=== PATIENT | female | born 1990 | race African-American/Black ===

== ENCOUNTER 2024-08-12 05:08 | Inpatient (IN) | payer SELFPAY ==
[~2024-08-12] VITALS: Ht 160 cm; Wt 95.0 kg
--- NOTE | 2024-08-12 05:27 | PRN ---
Misceleneous Note Note Note RAPID MEDICAL ASSESSMENT NOTE: 34-year-old female who presents with abdominal pain ongoing for 2 days. Worsened overnight. No associated nausea, vomiting, diarrhea. She denies any significant past medical history. Physical exam: General: Awake, alert and oriented. No acute distress. Skin: Skin in warm, dry and intact without rashes or lesions. HEENT: The head is normocephalic and atraumatic. Conjunctivae are clear without exudates or hemorrhage. Sclera is non-icteric. Cardiac: Regular rate Respiratory: No signs of respiratory distress. No Stridor. Abdomen: Right lower quadrant tenderness. Abdomen Soft, not rigid, no peritoneal signs Neurological: The patient is awake, alert and oriented to person, place, and time with normal speech. Speech is clear. There is no facial asymmetry. Able to ambulate without difficulty. Psychiatric: Appropriate mood and affect. Good judgement and insight. Plan: Labs, urine , urinalysis and imaging ordered Sign out to oncoming provider pending full evaluation and re-assessment. LANA PRAKASH MD Aug 12, 2024 05:27
[2024-08-12] MEDS: KETOROLAC TROMETH 30 MG/ML 1ML VIAL IV ONE (05:51)
--- NOTE | 2024-08-12 06:26 | ED.PDOC ---
History of Present Illness HPI Comments 34-year-old female with no PMHx presents with a chief complaint of abdominal pain. Patient states that her pain is localized to her RLQ, nonradiating, describes as sharp/stabbing pain, and rates her pain a 9/10. Patient denies any nausea, vomiting, or diarrhea with her abdomen pain. Patient denies any injuries or trauma prior to onset of symptoms. Patient also denies possibility of being . 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 Family History Family History: Reviewed,noncontributory to illness Social History Smoker: Non-Smoker Alcohol: Denies ETOH Use Drugs: Denies Drug Use Lives In: Home Constitutional: denies: chills, diaphoresis, fatigue, fever, malaise, sweats, weakness, others EENTM: denies: blurred vision, double vision, ear bleeding, ear discharge, ear drainage, ear pain, ear ringing, eye pain, eye redness, hearing loss, mouth p ain, mouth swelling, nasal discharge, nose bleeding, nose congestion, nose pain, photophobia, tearing, throat pain, throat swelling, voice changes, others Respiratory: denies: cough, hemoptysis, orthopnea, SOB at rest, shortness of br eath, SOB with excertion, stridor, wheezing, others Cardiovascular: denies: chest pain, dizzy spells, diaphoresis, Dyspnea on exertion, edema, irregular heart beat, left arm pain, lightheadedness, palpitations, PND, syncope, others Gastrointestinal: reports: abdominal pain; denies: abdomen distended, blood streaked bowels, constipated, diarrhea, dysphagia, difficulty swallowing, hematemesis, melena, nausea, poor appetite, poor fluid intake, rectal bleeding, rectal pain, vomiting, others Genitourinary: denies: abnormal vagina bleeding, burning, dyspareunia, dysuria, flank pain, frequency, hematuria, incontinence, pain, , vagina discharge, urgency, others Neurological: denies: dizziness, fainting, headache, left sided numbness, left sided weakness, numbness, paresthesia, pre-existing deficit, right sided numbness, right sided weakness, seizure, speech problems, tingling, tremors, weakness, others Musculoskeletal: denies: back pain, gout, joint pain, joint swelling, muscle pain, muscle stiffness, neck pain, others Integumetry: denies: bruises, change in color, change in hair/nails, dryness, laceration, lesions, lumps, rash, wounds, others Allergic/Immunocompromised: denies: Difficulty Healing, Frequent Infections, Hives, Itching, others Hematologic/Lymphatic: denies: anemia, blood clots, easy bleeding, easy bruis ing, swollen glands, others Endocrine: denies: excessive hunger, excessive sweating, excessive thirst, exc essive urination, flushing, intolerance to cold, intolerance to heat, unexplained weight gain, unexplained weight loss, others Psychiatric: denies: anxiety, bipolar disorder, depression, hopeless, panic disorder, schizophrenia, sleepless, suicidal, others All Other Systems: Reviewed and Negative Physical Exam General Appearance: Mild Distress, Normal HEENT: Normal ENT Inspection, Pharynx Normal, TMs Normal Neck: Full Range of Motion, Non-Tender, Normal, Normal Inspection Respiratory: Chest Non-Tender, Lungs Clear, No Accessory Muscle Use, No Respiratory Distress, Normal Breath Sounds Cardiovascular: No Edema, No JVD, No Murmur, No Gallop, Normal Peripheral Pulses, Regular Rate/Rhythm Breast Exam: Deferred Gastrointestinal: No Organomegaly, No Pulsatile Mass, Normal Bowel Sounds, RLQ, Soft, Tenderness Genitalia: Deferred Pelvic: Deferred Rectal: Deferred Extremities: No calf tenderness, Normal capillary refill, Normal inspection, Normal range of motion, Non-tender, No pedal edema Musculoskeletal : Apperance: Normal Neurologic: Alert, position clerk II-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 Was a procedure done?: No Differential Dx Considerations may include: Acute appendicitis, pyelonephritis, ovarian cyst, acute cystitis, diverticulitis, X-Ray, Labs, Meds, VS Vital Signs Date Time Temp Pulse Resp B/P (MAP) Pulse Ox O2 Delivery O2 Flow Rate FiO2 08/12/24 07:41 89 16 96 Room Air* 0 21 08/12/24 07:40 89 16 124/46 08/12/24 07:39 98.4 89 16 124/46 (72) 96 98.4 08/12/24 06:44 98.8 91 17 122/63 (82) 98 98.8 08/12/24 06:44 91 17 122/63 08/12/24 06:44 91 17 98 Room Air 08/12/24 05:11 98.9 110 22 133/82 (99) 98 Lab Test 08/12/24 06:50 08/12/24 06:43 Range/Units White Blood Count 17.5 H 4.4-10.8 10^3/uL Red Blood Count 4.66 4.0-5.20 10^6/uL Hemoglobin 13.1 12.2-16.2 g/dL Hematocrit 39.7 36.0-46.0 % Mean Corpuscular Volume 85.2 80.0-100.0 fL Mean Corpuscular Hemoglobin 28.0 28.0-32.0 pg Mean Corpuscular Hemoglobin Concent 32.9 32.0-36.0 g/dL Red Cell Distribution Width 15.9 H 11.8-14.3 % Platelet Count 325 140-450 10^3/uL Mean Platelet Volume 7.1 6.9-10.8 fL Neutrophils (%) (Auto) 84.0 H 37.0-80.0 % Lymphocytes (%) (Auto) 7.7 L 10.0-50.0 % Monocytes (%) (Auto) 7.5 0.0-12.0 % Eosinophils (%) (Auto) 0.3 0.0-7.0 % Basophils (%) (Auto) 0.5 0.0-2.0 % Neutrophils # (Auto) 14.7 H 1.6-8.6 10 ^3/uL Lymphocytes # (Auto) 1.3 0.4-5.4 10 ^3/uL Monocytes # (Auto) 1.3 0-1.3 10 ^3/uL Eosinophils # (Auto) 0.1 0-0.8 10 ^3/uL Basophils # (Auto) 0.1 0-0.2 10 ^3/uL Nucleated Red Blood Cells 0.1 % Sodium Level 134 L 136-145 mmol/L Potassium Level 3.6 3.5-5.1 mmol/L Chloride Level 104 98-107 mmol/L Carbon Dioxide Level 22 20-31 mmol/L Anion Gap 8 5-15 Blood Urea Nitrogen < 5 L 9-23 mg/dL Creatinine 0.88 0.550-1.02 mg/dL Glomerular Filtration Rate Calc 89 >90 mL/min BUN/Creatinine Ratio 5.7 L 10.0-20.0 Serum Glucose 105 74-106 mg/dL Calcium Level 9.3 8.7-10.4 mg/dL Total Bilirubin 0.6 0.2-1.0 mg/dL Aspartate Amino Transferase (AST) 22 13-40 U/L Alanine Aminotransferase (ALT) 26 7-40 U/L Alkaline Phosphatase 110 46-116 U/L Total Protein 8.1 5.7-8.2 g/dL Albumin 4.7 3.2-4.8 g/dL Lipase 32 12-53 U/L Urine Color Light-yellow Yellow Urine Clarity Cloudy H Clear Urine pH 6.5 5.0-9.0 Urine Specific [place] 1.019 1.001-1.035 Urine Protein 1+ H Negative Urine Ketones Negative Negative Urine Blood 2+ H Negative /uL Urine Nitrite 1+ H Negative Urine Bilirubin Negative Negative Urine Urobilinogen 2 H Negative mg/dL Urine Leukocyte Esterase 3+ Negative /uL Urine RBC 9 0 - 4 /hpf Urine Microscopic WBC 157 H 0-5 /HPF Urine Squamous Epithelial Cells Few <5 /hpf Urine Bacteria Few H None Seen /hpf Urine Glucose Normal Normal mg/dL Urine Test Negative Negative Current Medications Medications (Trade) Dose Ordered Sig/Jamie Route Start Time Stop Time Status Last Admin Ketorolac Tromethamine (Toradol Injection) 30 mg ONCE ONCE IV 08/12/24 05:45 08/12/24 05:46 DC 08/12/24 05:51 Ondansetron HCl (Zofran) 4 mg ONCE ONCE IV 08/12/24 06:30 08/12/24 06:31 DC 08/12/24 06:44 Morphine Sulfate 4 mg ONCE ONCE IV 08/12/24 06:30 08/12/24 06:31 DC 08/12/24 06:44 Sodium Chloride 1,000 ml @ 1,000 mls/hr Q1H ONCE IV 08/12/24 06:30 08/12/24 07:29 DC 08/12/24 06:50 Time of 1ST Reevaluation: 06:51 Reevaluation 1ST: Unchanged Patient Education/Counseling: Diagnosis, Treatment, Prognosis Family Education/Counseling: Diagnosis, Treatment, Prognosis Departure 1 Departure Time of Disposition: 08:57 (Patient presented with abdominal pain that was concerning for possible appendicits, gastritis, cholecystitis, colitis, gastroenteritis, sbo, or orther possible surgical emergency. Data: 1. I ordered and reviewed the result of at least 3 labs including a CBC, BMP, and Urinalysis. 2. I independently interpreted the following tests: CT Abdoment and Pelvis is concerning for acute pyelonephritis .Risk:This patient has a high risk of morbidity due to further diagnostic testing or treatment and may suffer from an acute abdominal process disorder. Workup reveals a few pyelonephritis elevated white count concerning for possible sepsis and patient should be admitted for further workup. and possible expert consultation. ) Impression: Primary Impression: Acute pyelonephritis Additional Impressions: Intractable abdominal pain Dehydration Disposition: 09 ADMITTED INPATIENT Admit to: Med Surg Condition: Serious Critical Care Note Critical Care Time?: Yes Critical care comment: Intractable abdominal pain Authorized and Performed by: Blaze Munoz MD Total critical care time: Approximately 35 minutes Due to a high probability of clinically significant, life threatening deterioration, the patient required my highest level of preparedness to intervene emergently and I personally spent this critical care time directly and personally managing the patient. This critical care time included obtaining a hi story; examining the patient; pulse oximetry; ordering and review of studies; arranging urgent treatment with development of a management plan; evaluation of patient's response to treatment; frequent reassessment; and, discussions with other providers. This critical care time was performed to assess and manage the high probability of imminent, life-threatening deterioration that could result in multi-organ failure. It was exclusive of separately billable procedures and treating other patients and teaching time. Please see my other sections and the rest of the note for further information on patient assessment and treatment. Stability Stability form required: No I personally scribed for BLAZE MUNOZ MD ([email or web address]) on 08/12/24 at 06:26. Electronically submitted by Eric Lucas ([email or web address]). BLAZE MUNOZ MD Aug 12, 2024 06:26
[2024-08-12] MEDS: MORPHINE SULFATE 4 MG/ML SYR/VIAL IV ONE (06:44)
[2024-08-12] MEDS: ONDANSETRON HCL 4 MG/2 ML VIAL IV ONE (06:44)
[2024-08-12] MEDS: SODIUM CHLORIDE 0.9% 1,000 ML IV ONE ×2 (06:50→09:31)
[2024-08-12 07:03] LABS: Urine Bacteria FEW /hpf (None Seen); Urine Blood 2+ /uL (Negative); Urine Color Light-Yellow (Yellow); Urine Protein, UAD 1+ (Negative); Urine Specific Gravity 1.019 (1.001-1.035); Urine Squamous Epithelial Cell FEW /hpf (<5); Urine Urobilinogen 2 mg/dL (Negative); Urine WBC 157 /HPF (0-5); Urine pH 6.5 (5.0-9.0)
[2024-08-12 07:04] LABS: Urine Clarity Cloudy (Clear)
[2024-08-12 07:13] LABS: Basophils # (auto) 0.1 10 ^3/uL (0-0.2); Basophils % (auto) 0.5 % (0.0-2.0); Eosinophils # (auto) 0.1 10 ^3/uL (0-0.8); Eosinophils % (auto) 0.3 % (0.0-7.0); Hematocrit 39.7 % (36.0-46.0); Hemoglobin 13.1 g/dL (12.2-16.2); Lymphocytes # (auto) 1.3 10 ^3/uL (0.4-5.4); Lymphocytes % (auto) 7.7 % (10.0-50.0); Mean Corpuscular Hgb Conc. 32.9 g/dL (32.0-36.0); Mean Corpuscular Volume 85.2 fL (80.0-100.0); Monocytes # (auto) 1.3 10 ^3/uL (0-1.3); Monocytes % (auto) 7.5 % (0.0-12.0); Neutrophils # (auto) 14.7 10 ^3/uL (1.6-8.6); Nucleated Red Blood Cells % 0.1 %; Platelet Count (auto) 325 10^3/uL (140-450); Red Blood Cells 4.66 10^6/uL (4.0-5.20); Red Cell Distribution Width 15.9 % (11.8-14.3); White Blood Cell 17.5 10^3/uL (4.4-10.8)
[2024-08-12 07:33] LABS: Alanine Aminotransferase 26 U/L (7-40); Albumin 4.7 g/dL (3.2-4.8); Alkaline Phosphatase 110 U/L (46-116); Anion Gap 8 (5-15); Aspartate Aminotransferase 22 U/L (13-40); Bilirubin, Total 0.6 mg/dL (0.2-1.0); Calcium 9.3 mg/dL (8.7-10.4); Carbon Dioxide 22 mmol/L (20-31); Chloride 104 mmol/L (98-107); Glucose 105 mg/dL (74-106); Potassium 3.6 mmol/L (3.5-5.1); Total Protein 8.1 g/dL (5.7-8.2)
[2024-08-12 07:36] LABS: BUN/Creatinine Ratio 5.7 (10.0-20.0); Blood Urea Nitrogen < 5 mg/dL (9-23); Sodium 134 mmol/L (136-145)
[2024-08-12 07:41] VITALS: PULSE 89; RESP 16; O2SAT 96
[2024-08-12] MEDS: IOHEXOL 350 MG/ML 100ML IJ ONE (07:49)
[2024-08-12 07:51] LABS: Lipase 32 U/L (12-53)
--- NOTE | 2024-08-12 08:41 | DVH ---
Exam: CT CT AB PEL WITH IV CON ONLY History: RLQ pain Comparison Study: None available at time of dictation. Technique: Multidetector spiral CT of the abdomen was performed from lung bases to pubic symphysis. Axial imaging was performed with intravenous contrast following the uneventful administration of 100 ml Omnipaque 300. Coronal and sagittal multiplanar reformats were obtained from the axial data set b y the technologist. Radiation Dose : 1. Abdomen/Pelvis: CTDIvol 19.22 mGy, DLP 1112.5 mGy*cm. Findings: Lung Bases: Lung bases are clear. Visualized portions of the heart and pericardium are unremarkable. Liver: The liver is normal in size. No focal lesions. Gallbladder and Biliary Tree: Multiple gallstones. No intrahepatic or extrahepatic biliary ductal d ilatation. Spleen: Unremarkable Pancreas: The pancreas enhances normally and there are no focal lesions. The main pancreatic duct i s not dilated Adrenal Glands: Unremarkable Kidneys: There is patchy heterogeneous enhancement of the right kidney and enhancement of the right r enal pelvis and proximal right ureter. There is right perinephric and periureteral fat stranding. No obstructing stone. Punctate nonobstructive calculus is seen in the lower pole of the right kidney. T he left kidney and visualized portions of the left ureter are unremarkable. GI tract: The stomach is grossly normal in appearance.. No evidence of small bowel wall thickening or abnormal dilatation to suggest bowel obstruction. The colon is unremarkable. The appendix is visuali zed and is normal. Peritoneum/mesentery/retroperitoneum. No evidence of free intraperitoneal air. No ascites. Lymph nodes: Right retroperitoneal lymph nodes are present measuring up to 1.1 cm in short axis. Abdominal Wall: Unremarkable. Vasculature: Abdominal aorta and main branches are unremarkable. Normal vascular enhancement. Urinary Bladder: Grossly unremarkable for degree of distention. Pelvic Organs: Unremarkable Musculoskeletal: No aggressive focal bony lesions, acute fractures or dislocation. Pubic symphysis n arrowing and subchondral cysts. IMPRESSION: 1. Acute right pyelonephritis. 2. Retroperitoneal right-sided lymphadenopathy which may be reactive. 3. Nonobstructive right nephrolithiasis. 4. Gallstones.
[2024-08-12] MEDS: VANCOMYCIN 1GM/250ML KIT 250 ML IV ONE (09:32)
[2024-08-12] MEDS ORDERED: MORPHINE SULFATE INJ 2 MG/ml SYRG IV PRN (10:15)
[2024-08-12] MEDS ORDERED: ONDANSETRON HCL 4 MG/2 ML VIAL IV PRN ×2 (10:15→10:30)
[2024-08-12] MEDS ORDERED: SODIUM CHLORIDE 0.9% 1,000 ML IV SCH (10:15)
[2024-08-12] MEDS ORDERED: cefTRIAXone 1GM/50ML D5W 50 ML IV ONE (10:15)
[2024-08-12] MEDS ORDERED: HYDROcodone-ACET 5/325MG TAB PO PRN (10:15)
[2024-08-12] MEDS ORDERED: ACETAMINOPHEN 325 MG TAB PO PRN (10:15)
--- NOTE | 2024-08-12 10:27 | DVHHP2 ---
History of Present Illness Reason for Visit: Abdominal pain History of Present Illness This 34-year-old female with no past medical history presents in the ED with a chief complaint of abdominal pain. The patient reports symptoms started yesterday with sharp stabbing pain on the right flank. Denies fever, chills, nausea, vomiting, diarrhea, or other associated symptoms. Past Medical History Denies Past Surgical History Denies Family History Reviewed, non-contributory to the management of this case. Past Social History Tobacco use one pack per day Marijuana use Review of Systems Constitutional: Yes: Malaise; No: Fever, Chills, Sweats, Weakness, Other Eyes: No: Pain, Vision change, Conjunctivae inflammation, Eyelid inflammation, Other, Redness ENT: No: Ear pain, Ear discharge, Nose pain, Nose discharge, Nose congestion, Mouth pain, Mouth swelling, Throat pain, Throat swelling, Other Respiratory: No: Cough, Dry, Shortness of breath, SOB with excertion, Wheezing, Hemoptysis, Pleuritic Pain, Sputum, Wheezing, Other Cardiovascular: No: Chest Pain, Palpitations, Orthopnea, Paroxysmal Noc. Dyspnea, Edema, Lt Headedness, Other Gastrointestinal: Abdominal Pain; No: Nausea, Vomiting, Diarrhea, Constipation, Melena, Hematochezia Genitourinary: No Dysuria, No Frequency, No Incontinence, No Hematuria, No Retention; Other (Right flank pain) Musculoskeletal: No: other, neck pain, shoulder pain, arm pain, back pain, hand pain, leg pain, foot pain Skin: No: Rash, Lesions, Jaundice, Bruising, Other Neurological: No: Weakness, Numbness, Incoordination, Change in speech, Confusion, Seizures, Other Allergies: Coded Allergies: NO KNOWN ALLERGIES (Unverified , 07/17/10) Exam Vital Signs Vital Signs Date Time Temp Pulse Resp B/P (MAP) Pulse Ox O2 Delivery O2 Flow Rate FiO2 08/12/24 09:34 78 16 102/62 (75) 96 08/12/24 07:41 Room Air* 0 21 08/12/24 07:39 98.4 98.4 General Appearance: Alert, Oriented X3, Cooperative, mild distress HEENT: Atraumatic, PERRLA, EOMI, Mucous membr. moist/pink Respiratory: Clear to auscultation, Normal air movement Cardiovascular: Regular rate, Normal S1, Normal S2, No murmurs Abdominal: Normal bowel sounds, Soft, No tenderness, No hepatospenomegaly, Other (Right CVA tenderness) Extremities: No clubbing, No cyanosis, No edema, Normal pulses, No tenderness/swelling Skin: No rashes, No breakdown, No significant lesion Neuro: Normal gait, Normal speech, Strength at 5/5 X4 ext, Normal tone Psych/Mental Status: Mental status NL Labs/Xrays Labs Test 08/12/24 09:25 08/12/24 06:50 08/12/24 06:43 Range/Units Lactic Acid Level 0.9 0.4-2.0 mmol/L White Blood Count 17.5 H 4.4-10.8 10^3/uL Red Blood Count 4.66 4.0-5.20 10^6/uL Hemoglobin 13.1 12.2-16.2 g/dL Hematocrit 39.7 36.0-46.0 % Mean Corpuscular Volume 85.2 80.0-100.0 fL Mean Corpuscular Hemoglobin 28.0 28.0-32.0 pg Mean Corpuscular Hemoglobin Concent 32.9 32.0-36.0 g/dL Red Cell Distribution Width 15.9 H 11.8-14.3 % Platelet Count 325 140-450 10^3/uL Mean Platelet Volume 7.1 6.9-10.8 fL Neutrophils (%) (Auto) 84.0 H 37.0-80.0 % Lymphocytes (%) (Auto) 7.7 L 10.0-50.0 % Monocytes (%) (Auto) 7.5 0.0-12.0 % Eosinophils (%) (Auto) 0.3 0.0-7.0 % Basophils (%) (Auto) 0.5 0.0-2.0 % Neutrophils # (Auto) 14.7 H 1.6-8.6 10 ^3/uL Lymphocytes # (Auto) 1.3 0.4-5.4 10 ^3/uL Monocytes # (Auto) 1.3 0-1.3 10 ^3/uL Eosinophils # (Auto) 0.1 0-0.8 10 ^3/uL Basophils # (Auto) 0.1 0-0.2 10 ^3/uL Nucleated Red Blood Cells 0.1 % Sodium Level 134 L 136-145 mmol/L Potassium Level 3.6 3.5-5.1 mmol/L Chloride Level 104 98-107 mmol/L Carbon Dioxide Level 22 20-31 mmol/L Anion Gap 8 5-15 Blood Urea Nitrogen < 5 L 9-23 mg/dL Creatinine 0.88 0.550-1.02 mg/dL Glomerular Filtration Rate Calc 89 >90 mL/min BUN/Creatinine Ratio 5.7 L 10.0-20.0 Serum Glucose 105 74-106 mg/dL Calcium Level 9.3 8.7-10.4 mg/dL Total Bilirubin 0.6 0.2-1.0 mg/dL Aspartate Amino Transferase (AST) 22 13-40 U/L Alanine Aminotransferase (ALT) 26 7-40 U/L Alkaline Phosphatase 110 46-116 U/L Total Protein 8.1 5.7-8.2 g/dL Albumin 4.7 3.2-4.8 g/dL Lipase 32 12-53 U/L Urine Color Light-yellow Yellow Urine Clarity Cloudy H Clear Urine pH 6.5 5.0-9.0 Urine Specific [place] 1.019 1.001-1.035 Urine Protein 1+ H Negative Urine Ketones Negative Negative Urine Blood 2+ H Negative /uL Urine Nitrite 1+ H Negative Urine Bilirubin Negative Negative Urine Urobilinogen 2 H Negative mg/dL Urine Leukocyte Esterase 3+ Negative /uL Urine RBC 9 0 - 4 /hpf Urine Microscopic WBC 157 H 0-5 /HPF Urine Squamous Epithelial Cells Few <5 /hpf Urine Bacteria Few H None Seen /hpf Urine Glucose Normal Normal mg/dL Urine Test Negative Negative PROCEDURE(s): ABPLIV - CT AB PEL WITH IV CON ONLY REASON: RLQ pain ORDER NUMBER(s): [id number], ACCESSION NUMBER(s): [id number] Exam: CT CT AB PEL WITH IV CON ONLY History: RLQ pain Comparison Study: None available at time of dictation. Technique: Multidetector spiral CT of the abdomen was performed from lung bases to pubic symphysis. Axial imaging was performed with intravenous contrast following the uneventful administration of 100 ml Omnipaque 300. Coronal and sagittal multiplanar reformats were obtained from the axial data set by the technologist. Radiation Dose : 1. Abdomen/Pelvis: CTDIvol 19.22 mGy, DLP 1112.5 mGy*cm. Findings: Lung Bases: Lung bases are clear. Visualized portions of the heart and pericardium are unremarkable. Liver: The liver is normal in size. No focal lesions. Gallbladder and Biliary Tree: Multiple gallstones. No intrahepatic or extrahepatic biliary ductal dilatation. Spleen: Unremarkable Pancreas: The pancreas enhances normally and there are no focal lesions. The main pancreatic duct is not dilated Adrenal Glands: Unremarkable Kidneys: There is patchy heterogeneous enhancement of the right kidney and enhancement of the right renal pelvis and proximal right ureter. There is right perinephric and periureteral fat stranding. No obstructing stone. Punctate nonobstructive calculus is seen in the lower pole of the right kidney. The left kidney and visualized portions of the left ureter are unremarkable. GI tract: The stomach is grossly normal in appearance.. No evidence of small bowel wall thickening or abnormal dilatation to suggest bowel obstruction. The colon is unremarkable. The appendix is visualized and is normal. Peritoneum/mesentery/retroperitoneum. No evidence of free intraperitoneal air. No ascites. Lymph nodes: Right retroperitoneal lymph nodes are present measuring up to 1.1 cm in short axis. Abdominal Wall: Unremarkable. Vasculature: Abdominal aorta and main branches are unremarkable. Normal vascular enhancement. Urinary Bladder: Grossly unremarkable for degree of distention. Pelvic Organs: Unremarkable Musculoskeletal: No aggressive focal bony lesions, acute fractures or dislocation. Pubic symphysis narrowing and subchondral cysts. IMPRESSION: 1. Acute right pyelonephritis. 2. Retroperitoneal right-sided lymphadenopathy which may be reactive. 3. Nonobstructive right nephrolithiasis. 4. Gallstones Assessment/Plan Assessment/Plan # acute complicated UTI # acute right pyelonephritis Admit to medical unit Empiric antibiotic Blood and Urine culture IV fluid Pain control # nicotine dependence # marijuana abuse Nicotine patch Smoking cessation and marijuana use counseled # morbid obesity Lifestyle modification counseled with diet, regular exercise and weight loss Medical plan discussed with patient and RN Plan discussed with: Patient My Orders Orders - JANICE STEPHEN Procedure Category Date Status Time Admit ADMIT 08/12/24 Transmitted 10:14 Code Status CODE 08/12/24 Transmitted 10:14 0.9% Ns 1000 Ml PHA 08/12/24 Transmitted 10:15 Hydrocodone-Acet PHA 08/12/24 Transmitted 5/325mg Tab ([place] 10:15 Ondansetron Hcl PHA 08/12/24 Transmitted (Zofran) 10:15 Complete Blood Count LAB 08/13/24 Verified 04:00 Comprehensive LAB 08/13/24 Verified Metabolic Panel 04:00 Cardiac DIET 08/12/24 Transmitted Diet-2gna,Lofat,Lochol Lunch Condition: Fair MAIA 08/12/24 Transmitted 10:14 Acetaminophen Tablet PHA 08/12/24 Transmitted (Tylenol Tablet) 10:15 Morphine Sulfate PHA 08/12/24 Transmitted Injection 10:15 Ceftriaxone Ivpb PHA 08/13/24 Transmitted Rocephin 09:00 Ceftriaxone Ivpb PHA 08/12/24 Transmitted Rocephin 10:15 Urine Bacterial SARAH 08/12/24 Transmitted Culture 10:14 Date of Service: Aug 12, 2024 Billing Provider: JANICE STEPHEN Common Visit Codes: [id number] INP/OBS CARE (HIGH) JANICE STEPHEN Aug 12, 2024 10:27
[2024-08-12] MEDS ORDERED: NICOTINE 14 MG/24HR TOPICAL PATCH TD SCH (10:30)
[2024-08-12] MEDS: SODIUM CHLORIDE 0.9% 1,000 ML IV SCH (11:29)
[2024-08-12] MEDS: cefTRIAXone 1GM/50ML D5W 50 ML IV ONE (11:40)
[2024-08-12] MEDS: CEFEPIME 2GM/50ML NS 50 ML IV ONE (12:08)
[2024-08-12 12:35] VITALS: BP 110/64; PULSE 95; RESP 18; TEMP 97.9; O2SAT 98
[2024-08-12] MEDS: HYDROcodone-ACET 5/325MG TAB PO PRN (13:11)
[2024-08-12] MEDS: MORPHINE SULFATE INJ 2 MG/ml SYRG IV PRN (20:37)
[2024-08-12 21:00] VITALS: BP 118/53; PULSE 130; RESP 22; TEMP 102.7; O2SAT 97
[2024-08-13] VITALS (7 sets, daily range): BP systolic 123–145; BP diastolic 59–92; PULSE 87–116; RESP 17–37; TEMP 97.9–102.7; O2SAT 94–100
[2024-08-13] MEDS ORDERED: VANCOMYCIN PER PHARMACY 0 MG IV SCH (02:15)
[2024-08-13] MEDS: SODIUM CHLORIDE 0.9% 1,000 ML IV ONE (03:15)
[2024-08-13] MEDS ORDERED: QUET100T47 PO (04:15)
[2024-08-13] MEDS: ACETAMINOPHEN 325 MG TAB PO PRN (06:27)
[2024-08-13 07:24] LABS: Basophils # (auto) 0.1 10 ^3/uL (0-0.2); Basophils % (auto) 0.7 % (0.0-2.0); Eosinophils # (auto) 0 10 ^3/uL (0-0.8); Eosinophils % (auto) 0.3 % (0.0-7.0); Hematocrit 35.4 % (36.0-46.0); Hemoglobin 11.9 g/dL (12.2-16.2); Lymphocytes # (auto) 1.3 10 ^3/uL (0.4-5.4); Lymphocytes % (auto) 10.4 % (10.0-50.0); Mean Corpuscular Hemoglobin 28.6 pg (28.0-32.0); Mean Corpuscular Hgb Conc. 33.7 g/dL (32.0-36.0); Mean Corpuscular Volume 84.9 fL (80.0-100.0); Monocytes # (auto) 1.5 10 ^3/uL (0-1.3); Monocytes % (auto) 11.9 % (0.0-12.0); Neutrophils # (auto) 9.8 10 ^3/uL (1.6-8.6); Neutrophils % (auto) 76.7 % (37.0-80.0); Platelet Count (auto) 277 10^3/uL (140-450); Red Blood Cells 4.17 10^6/uL (4.0-5.20); White Blood Cell 12.8 10^3/uL (4.4-10.8)
[2024-08-13 07:25] LABS: Alanine Aminotransferase 26 U/L (7-40); Anion Gap 10 (5-15); BUN/Creatinine Ratio 7.5 (10.0-20.0); Calcium 8.9 mg/dL (8.7-10.4); Glucose 82 mg/dL (74-106); Potassium 3.7 mmol/L (3.5-5.1); Sodium 137 mmol/L (136-145)
[2024-08-13 07:26] LABS: Aspartate Aminotransferase 24 U/L (13-40)
[2024-08-13 07:27] LABS: Bilirubin, Total 0.7 mg/dL (0.2-1.0)
[2024-08-13 07:31] LABS: Alkaline Phosphatase 122 U/L (46-116); Blood Urea Nitrogen 6 mg/dL (9-23); Carbon Dioxide 19 mmol/L (20-31); Chloride 108 mmol/L (98-107)
[2024-08-13] MEDS ORDERED: cefTRIAXone 1GM/50ML D5W 50 ML IV SCH (09:00)
[2024-08-13] MEDS: NICOTINE 14 MG/24HR TOPICAL PATCH TD SCH (09:42)
--- NOTE | 2024-08-13 11:14 | DVHPN2 ---
Subjective The patient is seen and examined at bedside. The patient is still complaining of abdominal pain. Reviewed: Care Plan, H&P, Labs, Medications, Previous Orders, Radiology Changes from previous H/P or p: No Changes Eyes: No Pain, No Vision change, No Conjunctivae inflammation, No Eyelid inflammation, No Other, No Redness ENT: No Ear pain, No Ear discharge, No Nose pain, No Nose discharge, No Nose congestion, No Mouth pain, No Mouth swelling, No Throat pain, No Throat swelling, No Other Cardiovascular: No Chest Pain, No Palpitations, No Orthopnea, No Paroxysmal Noc. Dyspnea, No Edema, No Lt Headedness, No Other Respiratory: No Cough, No Dry, No Shortness of breath, No SOB with excertion, No Wheezing, No Hemoptysis, No Pleuritic Pain, No Sputum, No Other Gastrointestinal: No Nausea, No Vomiting; Abdominal Pain; No Diarrhea, No Constipation, No Melena, No Hematochezia Genitourinary: No Dysuria, No Frequency, No Incontinence, No Hematuria, No Retention; Other (Right flank pain) Musculoskeletal: No other, No neck pain, No shoulder pain, No arm pain, No back pain, No hand pain, No leg pain, No foot pain Skin: No Rash, No Lesions, No Jaundice, No Bruising, No Other Objective Vitals Vital Signs Date Time Temp Pulse Resp B/P (MAP) Pulse Ox O2 Delivery O2 Flow Rate FiO2 08/13/24 09:00 98.8 102 20 123/59 (80) 96 98.8 08/13/24 08:00 Room Air* 0 21 Intake/Output Intake and Output 08/13/24 07:00 Intake Total 3900 ml Balance 3900 ml Intake Oral 1450 ml IV Total 2450 ml # Voids 4 General Appearance: Alert, Oriented X3, Cooperative, No acute distress HEENT: Atraumatic, PERRLA, EOMI, Mucous membr. moist/pink Neck: Supple Lungs: Clear to auscultation, Normal air movement Cardiovascular: Regular rate, Normal S1, Normal S2, No murmurs, Gallops, Rubs Abdomen: Normal bowel sounds, Soft, No tenderness Neuro: Cranial nerves 3-12 NL Psych/Mental Status: Mental status NL Medications Current Medications Medications Dose Ordered Sig/Jamie Route Start Time Stop Time Status Last Admin Dose Admin Ondansetron HCl 4 mg Q4HP PRN IV 08/12/24 10:30 Morphine Sulfate 2 mg Q4HPRN PRN IV 08/12/24 10:30 08/12/24 20:37 2 MG Ceftriaxone Sodium 50 ml @ 100 mls/hr DAILY@09 IV 08/13/24 09:00 Hold Sodium Chloride 1,000 ml @ 100 mls/hr Q10H IV 08/12/24 10:30 08/13/24 06:27 100 MLS/HR Acetaminophen/ Hydrocodone Bitart 1 tab Q4HP PRN PO 08/12/24 10:30 08/13/24 06:26 1 TAB Acetaminophen 650 mg Q6HP PRN PO 08/12/24 10:30 08/13/24 06:27 650 MG Nicotine 1 patch DAILY TD 08/12/24 10:45 08/13/24 09:42 1 PATCH Vancomycin HCl 0 ml @ 0 mls/hr UD IV 08/13/24 02:15 UNV Laboratory Results Laboratory Tests 08/13/24 05:53 Chemistry Test 08/13/24 05:53 Albumin 4.0 g/dL (3.2-4.8) Calcium Level 8.9 mg/dL (8.7-10.4) Total Protein 7.0 g/dL (5.7-8.2) LFT Test 08/13/24 05:53 Alanine Aminotransferase (ALT) 26 U/L (7-40) Alkaline Phosphatase 122 U/L (46-116) H Aspartate Amino Transferase (AST) 24 U/L (13-40) Total Bilirubin 0.7 mg/dL (0.2-1.0) Urinalysis Test 08/12/24 06:43 Urine Color Light-yellow (Yellow) Urine Clarity Cloudy (Clear) H Urine pH 6.5 (5.0-9.0) Urine Specific [place] 1.019 (1.001-1.035) Urine Protein 1+ (Negative) H Urine Ketones Negative (Negative) Urine Blood 2+ /uL (Negative) H Urine Nitrite 1+ (Negative) H Urine Bilirubin Negative (Negative) Urine Urobilinogen 2 mg/dL (Negative) H Urine Leukocyte Esterase 3+ /uL (Negative) Urine RBC 9 /hpf (0 - 4) Urine Microscopic WBC 157 /HPF (0-5) H Urine Squamous Epithelial Cells Few /hpf (<5) Urine Bacteria Few /hpf (None Seen) H Urine Glucose Normal mg/dL (Normal) Urine Test Negative (Negative) Microbiology Microbiology Date/Time Source Procedure Growth Status 08/12/24 09:30 Blood Blood Culture - Preliminary Resulted 08/12/24 06:43 Voided Urine Urine Culture - Preliminary Resulted Labs and/or images reviewed: Labs reviewed by me Assessment/Plan Assessment/Plan # acute complicated UTI # acute right pyelonephritis # nicotine dependence # marijuana abuse # morbid obesity Plan: Continuing current management. Continuing with IV antibiotic Rocephin. Waiting for culture. Advised to stopped smoking. This medical document was created using an electronic medical record system with [employer] direct computerized dictation system. Although this document has been carefully reviewed, there may still be some phonetic and typographical errors. These areas are purely typographical due to imperfections of the software programs, and do not reflect any compromise in the patient's medical care. Plan discussed with: Patient Date of Service: Aug 13, 2024 Billing Provider: MADELEINE PUTNAM MD Common Visit Codes: [id number] INP/OBS CARE(HIGH) MADELEINE PUTNAM MD Aug 13, 2024 11:14
[2024-08-13] MEDS: VANCOMYCIN 1.5GM/300ML 300 ML IV SCH (22:13)
[2024-08-14] VITALS (8 sets, daily range): BP systolic 119–134; BP diastolic 62–80; PULSE 87–103; RESP 17–20; TEMP 98.3–100.3; O2SAT 97–100
[2024-08-14 07:45] LABS: Basophils # (auto) 0.1 10 ^3/uL (0-0.2); Basophils % (auto) 0.7 % (0.0-2.0); Eosinophils # (auto) 0.1 10 ^3/uL (0-0.8); Eosinophils % (auto) 0.6 % (0.0-7.0); Hematocrit 35.3 % (36.0-46.0); Hemoglobin 11.9 g/dL (12.2-16.2); Lymphocytes # (auto) 1.3 10 ^3/uL (0.4-5.4); Lymphocytes % (auto) 10.5 % (10.0-50.0); Mean Corpuscular Hemoglobin 28.4 pg (28.0-32.0); Mean Corpuscular Hgb Conc. 33.6 g/dL (32.0-36.0); Mean Corpuscular Volume 84.6 fL (80.0-100.0); Monocytes # (auto) 1.5 10 ^3/uL (0-1.3); Monocytes % (auto) 12.6 % (0.0-12.0); Neutrophils # (auto) 9.1 10 ^3/uL (1.6-8.6); Neutrophils % (auto) 75.6 % (37.0-80.0); Platelet Count (auto) 289 10^3/uL (140-450); Red Blood Cells 4.17 10^6/uL (4.0-5.20); Red Cell Distribution Width 15.4 % (11.8-14.3); White Blood Cell 12.1 10^3/uL (4.4-10.8)
--- NOTE | 2024-08-14 12:48 | DVHPN2 ---
Reviewed: Care Plan, H&P, Labs, Medications, Previous Orders, Radiology Changes from previous H/P or p: No Changes General: Per HPI Eyes: No Pain, No Vision change, No Conjunctivae inflammation, No Eyelid inflammation, No Other, No Redness ENT: No Ear pain, No Ear discharge, No Nose pain, No Nose discharge, No Nose congestion, No Mouth pain, No Mouth swelling, No Throat pain, No Throat swelling, No Other Cardiovascular: No Chest Pain, No Palpitations, No Orthopnea, No Paroxysmal Noc. Dyspnea, No Edema, No Lt Headedness, No Other Respiratory: No Cough, No Dry, No Shortness of breath, No SOB with excertion, No Wheezing, No Hemoptysis, No Pleuritic Pain, No Sputum, No Other Gastrointestinal: No Nausea, No Vomiting; Abdominal Pain; No Diarrhea, No Constipation, No Melena, No Hematochezia Genitourinary: No Dysuria, No Frequency, No Incontinence, No Hematuria, No Retention; Other (Right flank pain) Musculoskeletal: No other, No neck pain, No shoulder pain, No arm pain, No back pain, No hand pain, No leg pain, No foot pain Skin: No Rash, No Lesions, No Jaundice, No Bruising, No Other Objective Vitals Vital Signs Date Time Temp Pulse Resp B/P (MAP) Pulse Ox O2 Delivery O2 Flow Rate FiO2 08/14/24 09:00 98.6 96 20 119/62 (81) 100 98.6 08/14/24 08:00 Room Air* 0 21 Intake/Output Intake and Output 08/14/24 06:59 Intake Total 3780 ml Balance 3780 ml Intake Oral 3580 ml IV Total 200 ml # Voids 15 General Appearance: Alert, Oriented X3, Cooperative, No acute distress HEENT: Atraumatic, PERRLA, EOMI, Mucous membr. moist/pink Neck: Supple Lungs: Clear to auscultation, Normal air movement Cardiovascular: Regular rate, Normal S1, Normal S2, No murmurs, Gallops, Rubs Abdomen: Normal bowel sounds, Soft, No tenderness Neuro: Cranial nerves 3-12 NL Psych/Mental Status: Mental status NL Medications Current Medications Medications Dose Ordered Sig/Jamie Route Start Time Stop Time Status Last Admin Dose Admin Ondansetron HCl 4 mg Q4HP PRN IV 08/12/24 10:30 Morphine Sulfate 2 mg Q4HPRN PRN IV 08/12/24 10:30 08/14/24 00:57 2 MG Ceftriaxone Sodium 50 ml @ 100 mls/hr DAILY@09 IV 08/13/24 09:00 Hold Sodium Chloride 1,000 ml @ 100 mls/hr Q10H IV 08/12/24 10:30 08/14/24 11:27 100 MLS/HR Acetaminophen/ Hydrocodone Bitart 1 tab Q4HP PRN PO 08/12/24 10:30 08/13/24 06:26 1 TAB Acetaminophen 650 mg Q6HP PRN PO 08/12/24 10:30 08/13/24 17:12 650 MG Nicotine 1 patch DAILY TD 08/12/24 10:45 08/14/24 09:35 1 PATCH Vancomycin HCl 0 ml @ 0 mls/hr UD IV 08/13/24 02:15 Vancomycin HCl 300 ml @ 200 mls/hr Q12H IV 08/13/24 22:00 08/14/24 09:36 200 MLS/HR Laboratory Results Laboratory Tests 08/13/24 05:53 08/14/24 06:15 Urinalysis Test 08/12/24 06:43 Urine Color Light-yellow (Yellow) Urine Clarity Cloudy (Clear) H Urine pH 6.5 (5.0-9.0) Urine Specific [place] 1.019 (1.001-1.035) Urine Protein 1+ (Negative) H Urine Ketones Negative (Negative) Urine Blood 2+ /uL (Negative) H Urine Nitrite 1+ (Negative) H Urine Bilirubin Negative (Negative) Urine Urobilinogen 2 mg/dL (Negative) H Urine Leukocyte Esterase 3+ /uL (Negative) Urine RBC 9 /hpf (0 - 4) Urine Microscopic WBC 157 /HPF (0-5) H Urine Squamous Epithelial Cells Few /hpf (<5) Urine Bacteria Few /hpf (None Seen) H Urine Glucose Normal mg/dL (Normal) Urine Test Negative (Negative) Microbiology Microbiology Date/Time Source Procedure Growth Status 08/12/24 09:30 Blood Blood Culture - Final Escherichia coli Complete 08/12/24 06:43 Voided Urine Urine Culture - Final Complete Assessment/Plan Assessment/Plan # acute complicated UTI # acute right pyelonephritis # nicotine dependence # marijuana abuse # morbid obesity Plan: Continuing current management. Continuing with IV antibiotic Rocephin. Waiting for culture. Advised to stopped smoking. Date of Service: Aug 14, 2024 Billing Provider: ROSALINDA HIGUERA DO Common Visit Codes: [id number] INP/OBS CARE(HIGH) ROSALINDA HIGUERA DO Aug 14, 2024 12:47
[2024-08-14] MEDS ORDERED: VANCOMYCIN 1,500 MG in D5W 5% 250 ML IV SCH (15:15)
[2024-08-14] MEDS: VANCOMYCIN 1,500 MG in D5W 5% 250 ML IV SCH (22:08)
[2024-08-15 01:00] VITALS: BP 138/81; PULSE 100; RESP 20; TEMP 96.9; O2SAT 95
[2024-08-15 05:00] VITALS: BP 127/85; PULSE 99; RESP 20; TEMP 98.6; O2SAT 97
[2024-08-15 08:00] VITALS: PULSE 92; RESP 18; O2SAT 99
[2024-08-15 09:00] VITALS: BP 103/63; PULSE 89; RESP 18; TEMP 98.3; O2SAT 96
[2024-08-15] MEDS: cefTRIAXone 1GM/50ML D5W 50 ML IV ONE (10:59)
[2024-08-15] MEDS: cefTRIAXone 1GM/50ML D5W 50 ML IV SCH (10:59)
[2024-08-15] MEDS ORDERED: LEVO750T40 PO (11:49)
--- NOTE | 2024-08-15 11:50 | DVHDS2 ---
Discharge Summary Date of Admission Aug 12, 2024 at 10:14 Date of Discharge: Aug 15, 2024 Labs/Diagnostic Data: Laboratory Results Test 08/15/24 09:19 08/14/24 06:15 08/13/24 05:53 08/12/24 09:25 Vancomycin Level Trough 8.4 ug/mL (5-10) White Blood Count 12.1 10^3/uL (4.4-10.8) Red Blood Count 4.17 10^6/uL (4.0-5.20) Hemoglobin 11.9 g/dL (12.2-16.2) Hematocrit 35.3 % (36.0-46.0) Mean Corpuscular Volume 84.6 fL (80.0-100.0) Mean Corpuscular Hemoglobin 28.4 pg (28.0-32.0) Mean Corpuscular Hemoglobin Concent 33.6 g/dL (32.0-36.0) Red Cell Distribution Width 15.4 % (11.8-14.3) Platelet Count 289 10^3/uL (140-450) Mean Platelet Volume 8.0 fL (6.9-10.8) Neutrophils (%) (Auto) 75.6 % (37.0-80.0) Lymphocytes (%) (Auto) 10.5 % (10.0-50.0) Monocytes (%) (Auto) 12.6 % (0.0-12.0) Eosinophils (%) (Auto) 0.6 % (0.0-7.0) Basophils (%) (Auto) 0.7 % (0.0-2.0) Neutrophils # (Auto) 9.1 10 ^3/uL (1.6-8.6) Lymphocytes # (Auto) 1.3 10 ^3/uL (0.4-5.4) Monocytes # (Auto) 1.5 10 ^3/uL (0-1.3) Eosinophils # (Auto) 0.1 10 ^3/uL (0-0.8) Basophils # (Auto) 0.1 10 ^3/uL (0-0.2) Nucleated Red Blood Cells 0.0 % Creatinine 0.68 mg/dL (0.550-1.02) Glomerular Filtration Rate Calc 118 mL/min (>90) Sodium Level 137 mmol/L (136-145) Potassium Level 3.7 mmol/L (3.5-5.1) Chloride Level 108 mmol/L (98-107) Carbon Dioxide Level 19 mmol/L (20-31) Anion Gap 10 (5-15) Blood Urea Nitrogen 6 mg/dL (9-23) BUN/Creatinine Ratio 7.5 (10.0-20.0) Serum Glucose 82 mg/dL (74-106) Calcium Level 8.9 mg/dL (8.7-10.4) Total Bilirubin 0.7 mg/dL (0.2-1.0) Aspartate Amino Transferase (AST) 24 U/L (13-40) Alanine Aminotransferase (ALT) 26 U/L (7-40) Alkaline Phosphatase 122 U/L (46-116) Total Protein 7.0 g/dL (5.7-8.2) Albumin 4.0 g/dL (3.2-4.8) Lactic Acid Level 0.9 mmol/L (0.4-2.0) Test 08/12/24 06:50 08/12/24 06:43 Lipase 32 U/L (12-53) Urine Color Light-yellow (Yellow) Urine Clarity Cloudy (Clear) Urine pH 6.5 (5.0-9.0) Urine Specific [place] 1.019 (1.001-1.035) Urine Protein 1+ (Negative) Urine Ketones Negative (Negative) Urine Blood 2+ /uL (Negative) Urine Nitrite 1+ (Negative) Urine Bilirubin Negative (Negative) Urine Urobilinogen 2 mg/dL (Negative) Urine Leukocyte Esterase 3+ /uL (Negative) Urine RBC 9 /hpf (0 - 4) Urine Microscopic WBC 157 /HPF (0-5) Urine Squamous Epithelial Cells Few /hpf (<5) Urine Bacteria Few /hpf (None Seen) Urine Glucose Normal mg/dL (Normal) Urine Test Negative (Negative) Other Laboratory Tests 08/14/24 06:15 08/13/24 05:53 Discharge Disposition: Home Discharge Instruct/Medications Diet: Cardiac 2g Na,low cholest Activity: No Restrictions, As Tolerated Discharge Statement: "Patient was advised to return to the ER or call 911 if any headaches, dizziness, shortness of breath, chest pain, abdominal pain, bleeding, fevers, or worsening of medical condition. Patient was counseled about treatment plan, medications, possible side effects, patientverbalized understanding. All questions were answered to the best of my ability. This discharge took greater then 30 minutes in planning, reviewing documentation, counseling the patient, and discussing with other team members." ASSESSMENT ASSESSMENT Assessment Date of Service: Aug 15, 2024 Billing Provider: ROSALINDA HIGUERA DO Common Visit Codes: [id number] DISCH DAY >30min ROSALINDA HIGUERA DO Aug 15, 2024 11:50
== END 2024-08-15 14:00 | disposition home or self-care (01) | DRG 690 ==
LOC: ER 05:08 → EDBD 05:08 → EDUNIT# 05:08 → OVERFLOW 10:14 → ER 10:22 → OVERFLOW 10:22 → CENTRAL 17:59
PROVIDERS: ADMIT Internal Medicine; ATTEND Internal Medicine
DX: N10 Acute pyelonephritis (principal); F12.10 Cannabis abuse, uncomplicated; F17.200 Nicotine dependence, unspecified, uncomplicated; E66.01 Morbid (severe) obesity due to excess calories; E86.0 Dehydration; Z68.37 Body mass index [BMI] 37.0-37.9, adult
CPT/HCPCS: 36415; 74177; 80053; 80202; 81001; 81025; 82565; 83605; 83690; 85025; 87040; 87077; 87086; 87186; 96361; 96365; 96367; 96368; 96375; 99291; G0378; J0692; J1885; J2405; J7060

== ENCOUNTER 2025-01-18 11:00 | Emergency (ER) | payer MEDICAID ==
[~2025-01-18 11:00] MED LIST: LEVO750T40 PO; QUET100T47 PO
--- NOTE | 2025-01-18 11:58 | ED.PDOC ---
History of Present Illness HPI Comments 34-year-old female presents with a chief complaint of throat pain x 1 week. Patient has a hot potato voice and is not able to handle her secretions. Patient is tearful in triage and states that her pain is 10/10 at this time. Patient is barely able to open her mouth and communicate. Patient reported that it is painful to swallow. No other symptoms or modifying factors present at this time. Time Seen by MD: 11:55 Reviewed Notes: Medications, Allergies Allergies: Coded Allergies: NO KNOWN ALLERGIES (Unverified , 07/17/10) Home Meds Active Scripts Levofloxacin Hemihydrate (LEVOFLOXACIN) 750 Mg Tab, 1 TAB PO DAILY, #10 TAB Prov:ROSALINDA HIGUERA DO 08/15/24 Reported Medications Quetiapine Fumerate (QUETIAPINE FUMARATE) 100 Mg Tab, 100 MG PO DAILY, TAB 08/13/24 Information Source: Patient Mode of Arrival: Ambulatory Severity: Moderate Timing: Days Duration: Since onset Prehospital treatment: None Past Medical History PAST MEDICAL HISTORY: Denies Surgical History: Denies all surgeries 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 Family History Family History: Reviewed,noncontributory to illness Social History Smoker: Non-Smoker Alcohol: Denies ETOH Use Drugs: Denies Drug Use Lives In: Home Constitutional: denies: chills, diaphoresis, fatigue, fever, malaise, sweats, weakness, others EENTM: reports: throat pain; denies: blurred vision, double vision, ear bleeding, ear discharge, ear drainage, ear pain, ear ringing, eye pain, eye redness, hearing loss, mouth pain, mouth swelling, nasal discharge, nose bleeding, nose congestion, nose pain, photophobia, tearing, throat swelling, voice changes, others Respiratory: denies: cough, hemoptysis, orthopnea, SOB at rest, shortness of breath, SOB with excertion, stridor, wheezing, others Cardiovascular: denies: chest pain, dizzy spells, diaphoresis, Dyspnea on exertion, edema, irregular heart beat, left arm pain, lightheadedness, palpitations, PND, syncope, others Gastrointestinal: denies: abdomen distended, abdominal pain, blood streaked bowels, constipated, diarrhea, dysphagia, difficulty swallowing, hematemesis, melena, nausea, poor appetite, poor fluid intake, rectal bleeding, rectal pain, vomiting, others Genitourinary: denies: abnormal vagina bleeding, burning, dyspareunia, dysuria, flank pain, frequency, hematuria, incontinence, pain, , vagina discharge, urgency, others Neurological: denies: dizziness, fainting, headache, left sided numbness, left sided weakness, numbness, paresthesia, pre-existing deficit, right sided numbness, right sided weakness, seizure, speech problems, tingling, tremors, weakness, others Musculoskeletal: denies: back pain, gout, joint pain, joint swelling, muscle pain, muscle stiffness, neck pain, others Integumetry: denies: bruises, change in color, change in hair/nails, dryness, laceration, lesions, lumps, rash, wounds, others Allergic/Immunocompromised: denies: Difficulty Healing, Frequent Infections, Hives, Itching, others Hematologic/Lymphatic: denies: anemia, blood clots, easy bleeding, easy bruising, swollen glands, others Endocrine: denies: excessive hunger, excessive sweating, excessive thirst, excessive urination, flushing, intolerance to cold, intolerance to heat, unexplained weight gain, unexplained weight loss, others Psychiatric: denies: anxiety, bipolar disorder, depression, hopeless, panic disorder, schizophrenia, sleepless, suicidal, others All Other Systems: Reviewed and Negative Physical Exam General Appearance: Moderate Distress (TEARFUL), Normal HEENT: Normal ENT Inspection, Pharynx Normal, TMs Normal Neck: Full Range of Motion, Other (HOT [place]OTATO VOICE, UNABLE TO HANDLE SECRETIONS) Respiratory: Chest Non-Tender, Lungs Clear, No Accessory Muscle Use, No Respiratory Distress, Normal Breath Sounds Cardiovascular: No Edema, No JVD, No Murmur, No Gallop, Normal Peripheral Pulses, Regular Rate/Rhythm Breast Exam: Deferred Gastrointestinal: No Organomegaly, Non Tender, No Pulsatile Mass, Normal Bowel Sounds, Soft Genitalia: Deferred Pelvic: Deferred Rectal: Deferred Extremities: No calf tenderness, Normal capillary refill, Normal inspection, Normal range of motion, Non-tender, No pedal edema Musculoskeletal : Apperance: Normal Neurologic: Alert, 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 Was a procedure done?: No Differential Dx Considerations may include: Tonsillar abscess, sepsis, peritonsillar abscess, deep neck space infection X-Ray, Labs, Meds, VS Vital Signs Date Time Temp Pulse Resp B/P (MAP) Pulse Ox O2 Delivery O2 Flow Rate FiO2 01/18/25 15:13 64 18 112/48 01/18/25 13:00 99.4 98 18 112/73 (86) 99 99.4 01/18/25 12:41 89 16 129/69 (89) 99 01/18/25 11:40 99.7 100 18 104/37 (59) 100 99.7 Lab Test 01/18/25 12:30 Range/Units White Blood Count 18.0 H 4.4-10.8 10^3/uL Red Blood Count 4.93 4.0-5.20 10^6/uL Hemoglobin 14.0 12.2-16.2 g/dL Hematocrit 42.5 36.0-46.0 % Mean Corpuscular Volume 86.2 80.0-100.0 fL Mean Corpuscular Hemoglobin 28.5 28.0-32.0 pg Mean Corpuscular Hemoglobin Concent 33.0 32.0-36.0 g/dL Red Cell Distribution Width 15.8 H 11.8-14.3 % Platelet Count 398 140-450 10^3/uL Mean Platelet Volume 7.4 6.9-10.8 fL Neutrophils (%) (Auto) 81.0 H 37.0-80.0 % Lymphocytes (%) (Auto) 9.8 L 10.0-50.0 % Monocytes (%) (Auto) 8.1 0.0-12.0 % Eosinophils (%) (Auto) 0.5 0.0-7.0 % Basophils (%) (Auto) 0.6 0.0-2.0 % Neutrophils # (Auto) 14.6 H 1.6-8.6 10 ^3/uL Lymphocytes # (Auto) 1.8 0.4-5.4 10 ^3/uL Monocytes # (Auto) 1.4 H 0-1.3 10 ^3/uL Eosinophils # (Auto) 0.1 0-0.8 10 ^3/uL Basophils # (Auto) 0.1 0-0.2 10 ^3/uL Nucleated Red Blood Cells 0.1 % Prothrombin Time 11.3 9.3-11.8 sec Prothrombin Time INR 1.07 0.9-1.15 Activated Partial Thromboplast Time 24.7 24.5-34.5 SEC Sodium Level 137 136-145 mmol/L Potassium Level 3.9 3.5-5.1 mmol/L Chloride Level 104 98-107 mmol/L Carbon Dioxide Level 24 20-31 mmol/L Anion Gap 9 5-15 Blood Urea Nitrogen 10 9-23 mg/dL Creatinine 0.90 0.550-1.02 mg/dL Glomerular Filtration Rate Calc 87 >90 mL/min BUN/Creatinine Ratio 11.1 10.0-20.0 Serum Glucose 90 74-106 mg/dL Lactic Acid Level 1.2 0.4-2.0 mmol/L Calcium Level 9.8 8.7-10.4 mg/dL Total Bilirubin 0.7 0.2-1.0 mg/dL Aspartate Amino Transferase (AST) 15 13-40 U/L Alanine Aminotransferase (ALT) 13 7-40 U/L Alkaline Phosphatase 102 46-116 U/L Total Protein 8.9 H 5.7-8.2 g/dL Albumin 4.9 H 3.2-4.8 g/dL Current Medications Medications (Trade) Dose Ordered Sig/Jamie Route Start Time Stop Time Status Last Admin Vancomycin HCl 200 ml @ 200 mls/hr ONCE ONCE IV 01/18/25 12:00 01/18/25 12:59 DC 01/18/25 12:11 Cefepime HCl 50 ml @ 12.5 mls/hr Q8HR IV 01/18/25 14:00 01/18/25 16:16 Sodium Chloride 1,000 ml @ 1,000 mls/hr Q1H ONCE IV 01/18/25 12:00 01/18/25 12:59 DC 01/18/25 12:11 Cefepime HCl 50 ml @ 50 mls/hr ONCE ONCE IV 01/18/25 12:30 01/18/25 13:29 DC 01/18/25 14:53 Morphine Sulfate 4 mg ONCE ONCE IV 01/18/25 14:30 01/18/25 14:31 DC 01/18/25 15:13 Dexamethasone Sodium Phosphate (Decadron Injection) 10 mg ONCE ONCE IV 01/18/25 14:30 01/18/25 14:31 DC 01/18/25 15:06 Ketorolac Tromethamine (Toradol Injection) 15 mg ONCE ONCE IV 01/18/25 14:30 01/18/25 14:31 DC 01/18/25 14:51 Time of 1ST Reevaluation: 12:25 Reevaluation 1ST: Unchanged Patient Education/Counseling: Diagnosis, Treatment Family Education/Counseling: No Family Present SEPSIS Sepsis Screen Physician Orders Urinalysis (01/18/25 11:54) Chest Portable (01/18/25 11:54) Accucheck (01/18/25 11:54) Blood Culture (01/18/25 11:54) Cefepime 1gm/ 50ml (Maxipime 1gm/50ml) (01/18/25 14:00) Notify Md If Map <65 Or Bp<90 (01/18/25 11:54) If Map<65 Start Vasopressor (01/18/25 11:54) Sepsis Reassesment After Fluid (01/18/25 12:54) Maxillofacial With (01/18/25 11:54) Vital Signs Date Time Temp Pulse Resp B/P (MAP) Pulse Ox O2 Delivery O2 Flow Rate FiO2 01/18/25 15:13 64 18 112/48 01/18/25 13:00 99.4 98 18 112/73 (86) 99 99.4 01/18/25 12:41 89 16 129/69 (89) 99 01/18/25 11:40 99.7 100 18 104/37 (59) 100 99.7 Laboratory Tests Test 01/18/25 12:30 Lactic Acid Level 1.2 mmol/L (0.4-2.0) White Blood Count 18.0 10^3/uL (4.4-10.8) H Medications Medications Dose Ordered Sig/Jamei Route Start Time Stop Time Status Last Admin Dose Admin Cefepime HCl 50 ml @ 12.5 mls/hr Q8HR IV 01/18/25 14:00 01/18/25 16:16 Cefepime HCl 50 ml @ 50 mls/hr ONCE ONCE IV 01/18/25 12:30 01/18/25 13:29 DC 01/18/25 14:53 Dexamethasone Sodium Phosphate 10 mg ONCE ONCE IV 01/18/25 14:30 01/18/25 14:31 DC 01/18/25 15:06 Ketorolac Tromethamine 15 mg ONCE ONCE IV 01/18/25 14:30 01/18/25 14:31 DC 01/18/25 14:51 Morphine Sulfate 4 mg ONCE ONCE IV 01/18/25 14:30 01/18/25 14:31 DC 01/18/25 15:13 Sodium Chloride 1,000 ml @ 1,000 mls/hr Q1H ONCE IV 01/18/25 12:00 01/18/25 12:59 DC 01/18/25 12:11 Vancomycin HCl 200 ml @ 200 mls/hr ONCE ONCE IV 01/18/25 12:00 01/18/25 12:59 DC 01/18/25 12:11 Departure 1 Departure Time of Disposition: 16:26 (Patient with large tonsillar abscess and difficulty opening the mouth. Patient is protecting her airway and tolerating her secretions. I am unable to drain the abscesses as patient is unable to open her mouth. Empirically cover patient with antibiotics patient was accepted to [facility] as an emergent transfer) Impression: Primary Impression: Tonsillar abscess Additional Impressions: Trismus Sepsis Qualified Codes: A41.9 - Sepsis, unspecified organism Disposition: 02 SHORT TERM [facility]OSPITAL Condition: Guarded Critical Care Note Critical Care Time?: Yes Critical care comment: Concern for sepsis Authorized and Performed by: Blaze Munoz MD Total critical care time: Approximately 109 minutes Due to a high probability of clinically significant, life threatening deterioration, the patient required my highest level of preparedness to intervene emergently and I personally spent this critical care time directly and personally managing the patient. This critical care time included obtaining a history; examining the patient; pulse oximetry; ordering and review of studies; arranging urgent treatment with development of a management plan; evaluation of patient's response to treatment; frequent reassessment; and, discussions with other providers. This critical care time was performed to assess and manage the high probability of imminent, life-threatening deterioration that could result in multi-organ failure. It was exclusive of separately billable procedures and treating other patients and teaching time. Please see my other sections and the rest of the note for further information on patient assessment and treatment. Stability Stability form required: No Heart Score Heart Score: Heart Score Response (Comments) Value History N/A 0 EKG N/A 0 Age N/A 0 Risk Factors N/A 0 Troponin N/A 0 Total 0 I personally scribed for BLAZE MUNOZ MD ([email or web address]) on 01/18/25 at 11:58. Electronically submitted by Eric Lucas ([email or web address]). BLAZE MUNOZ MD Jan 18, 2025 11:58
[2025-01-18] MEDS: VANCOMYCIN 1GM/200ML PM 200 ML IV ONE (12:11)
[2025-01-18] MEDS: SODIUM CHLORIDE 0.9% 1,000 ML IV ONE (12:11)
[2025-01-18 12:18] VITALS: PULSE 83; RESP 22; O2SAT 98
[2025-01-18 13:04] LABS: Hematocrit 42.5 % (36.0-46.0); Hemoglobin 14.0 g/dL (12.2-16.2); Mean Corpuscular Hemoglobin 28.5 pg (28.0-32.0); Mean Corpuscular Volume 86.2 fL (80.0-100.0); Nucleated Red Blood Cells % 0.1 %
[2025-01-18 13:17] LABS: INR 1.07 (0.9-1.15); Partial Thromboplastin Time 24.7 SEC (24.5-34.5); Prothrombin Time 11.3 sec (9.3-11.8)
[2025-01-18 13:26] LABS: Alanine Aminotransferase 13 U/L (7-40); Alkaline Phosphatase 102 U/L (46-116); Anion Gap 9 (5-15); BUN/Creatinine Ratio 11.1 (10.0-20.0); Bilirubin, Total 0.7 mg/dL (0.2-1.0); Blood Urea Nitrogen 10 mg/dL (9-23); Calcium 9.8 mg/dL (8.7-10.4); Carbon Dioxide 24 mmol/L (20-31); Chloride 104 mmol/L (98-107); Glucose 90 mg/dL (74-106); Potassium 3.9 mmol/L (3.5-5.1); Sodium 137 mmol/L (136-145)
[2025-01-18 13:27] LABS: Albumin 4.9 g/dL (3.2-4.8); Total Protein 8.9 g/dL (5.7-8.2)
[2025-01-18] MEDS: IOHEXOL 300 MG/ML 100ML BOTTLE IJ ONE (13:34)
[2025-01-18] MEDS: ACETAMINOPHEN IV 1000 MG/100ML (10MG/ML) IV STA (13:49)
--- NOTE | 2025-01-18 14:06 | DVH ---
CHEST RADIOGRAPH Indication: fever Technique: Single frontal view of the chest was obtained Comparison: None FINDINGS: Lines and Tubes: None Lungs: No focal consolidation. Pleura: No effusion. No pneumothorax. Cardiomediastinal contours: Unremarkable Bones: No acute osseous abnormality. IMPRESSION: 1. No acute cardiopulmonary disease. HS:Y
--- NOTE | 2025-01-18 14:17 | DVH ---
EXAM: CT MAXILLOFACIAL WITH INDICATION: c/f ludwigs angina, please include superior neck Exam Date: 01/18/2025 01:34 PM COMPARISON: None TECHNIQUE: CT of the neck with intravenous contrast. RADIATION DOSE: CTDIvol: 66.95 mGy, DLP: 1631.07 mGy*cm FINDINGS: There is diffuse enlargement of the palatine tonsils. 2.1 x 1.2 cm abscess associated with the right palatine tonsil. The fat planes of the neck appear intact. The airway and larynx are unremarkable. The parotid, submandibular and thyroid glands are unremarkable. The vascular structures of the neck appear patent. The visualized lung apices are clear. The limited visualized portions of the brain are unremarkable. The osseous structures are unremarkable. IMPRESSION: Diffuse enlargement of the tonsils with a 2.1 x 1.2 cm tonsillar abscess associated with the right a nterior palatine tonsil.
[2025-01-18] MEDS: KETOROLAC TROMETH 30 MG/ML 1ML VIAL IV ONE (14:51)
[2025-01-18] MEDS: CEFEPIME 1GM/ 50ML 50 ML IV ONE (14:53)
[2025-01-18] MEDS: MORPHINE SULFATE 4 MG/ML SYR/VIAL IV ONE (15:13)
[2025-01-18] MEDS: CEFEPIME 1GM/ 50ML 50 ML IV SCH (16:16)
[2025-01-18 18:40] VITALS: BP 126/60; PULSE 68; RESP 16; TEMP 98.6; O2SAT 98
== END 2025-01-18 19:58 | disposition short-term general hospital (02) ==
LOC: ER 11:00
DX: J36 Peritonsillar abscess (principal); A41.9 Sepsis, unspecified organism; R25.2 Cramp and spasm; Z79.899 Other long term (current) drug therapy
CPT/HCPCS: 36415; 70487; 71045; 80053; 82947; 83605; 85025; 85610; 85730; 87040; 96365; 96366; 96367; 96375; 99291; 99292; J0692; J1100; J1885; J2270; J3373; J7030; Q9967; 82962; J0131